=== PATIENT | male | born 1970 | race Caucasian/White ===

== ENCOUNTER 2020-12-04 09:19 | Emergency (ER) | payer OTHER ==
[~2020-12-04] VITALS: Ht 162.6 cm; Wt 63.6 kg
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
[2020-12-04] MEDS ORDERED: diphenhydrAMINE 50 mg/ml inj IV ONE (14:00)
[2020-12-04] MEDS ORDERED: proCHLORperazine 10 MG/2 ml inj IV ONE (14:00)
[2020-12-04] MEDS ORDERED: normal saline 1000ml 1,000 ML IV ONE (14:00)
[2020-12-04] MEDS ORDERED: ketorolac trometh. 30mg/ml inj. IV ONE (14:00)
[2020-12-04 15:50] VITALS: BP 113/75
== END 2020-12-04 15:53 | disposition home or self-care (01) ==
LOC: ER 09:20
DX: U07.1 COVID-19 (principal)
CPT/HCPCS: 70450; 87635; 96374; 96375; 99284; C9803; J0780; J1200; J1885; J7030